=== PATIENT | female | born 1990 | race Caucasian/White ===

== ENCOUNTER 2018-01-15 11:07 | Emergency (ER) | payer BC ==
[2018-01-15 12:24] LABS: APPEARANCE, URINE TURBID (CLEAR); BACTERIA, URINE AUTO 1+ (NEGATIVE); BILIRUBIN, URINE AUTO NEGATIVE (NEGATIVE); BLOOD, URINE BLOOD 3+ (NEGATIVE); COLOR, URINE RED (YELLOW); GLUCOSE, URINE (UA) AUTO 1+ mg/dL (NEGATIVE); KETONE, URINE AUTO 1+ mg/dL (NEGATIVE); LEUKOCYTE ESTERASE, URINE AUTO 1+ (NEGATIVE); MUCUS, URINE LARGE (NEGATIVE); NITRITE, URINE AUTO NEGATIVE (NEGATIVE); PROTEIN, URINE AUTO 3+ mg/dL (NEGATIVE); RBC, URINE AUTO TNTC /HPF (0-3); SPECIFIC GRAVITY URINE AUTO 1.026 (1.002-1.035); SQUAMOUS EPITHELIAL CELL UR AU 0 /HPF (0-6); UROBILINOGEN, URINE AUTO 0.2 mg/dL (0.0-2.0); WBC, URINE AUTO 109 /HPF (0-3)
[2018-01-15 12:45] LABS: HCG, SERUM QUANTITATIVE 68 MIU/ML
[2018-01-15 13:11] LABS: ANION GAP 7 MEQ/L (8-16); BLOOD UREA NITROGEN 10 MG/DL (7-18); CALCIUM LEVEL 8.8 MG/DL (8.5-10.1); CARBON DIOXIDE LEVEL 25 MEQ/L (21-32); CHLORIDE LEVEL 109 MEQ/L (98-107); CREATININE FOR GFR 0.73 MG/DL (0.55-1.30); GLOMERULAR FILTRATION RATE > 60.0 (>60); GLUCOSE, FASTING 87 MG/DL (70-100); POTASSIUM SERUM 4.4 MEQ/L (3.5-5.1); SODIUM LEVEL 141 MEQ/L (136-145)
== END 2018-01-15 13:25 | disposition home or self-care (01) ==
LOC: M ED 11:07
DX: O20.0 Threatened abortion (principal); O23.10 Infections of bladder in pregnancy, unspecified trimester; Z79.899 Other long term (current) drug therapy; Z88.0 Allergy status to penicillin
CPT/HCPCS: 76801

== ENCOUNTER 2020-08-09 16:31 | Emergency (ER) | payer BC ==
[~2020-08-09] VITALS: Ht 167.6 cm; Wt 96.0 kg
[~2020-08-09 16:31] MED LIST: MACR100C43 PO; PREN1TAB11 PO
[2020-08-09 18:18] LABS: BASO % 0.3 % (0.0-1.0); EOS # 0.1 10^3/uL (0.0-0.5); EOS % 0.6 % (0.0-3.0); HEMATOCRIT 43.4 % (36.0-47.0); HEMOGLOBIN 14.1 g/dl (12.0-15.5); LYMPH # 3.9 10^3/uL (1.5-5.0); LYMPH % 33.2 % (24.0-44.0); MEAN CORPUSCULAR HEMOGLOBIN 29.5 pg (27.0-33.0); MEAN CORPUSCULAR HGB CONC 32.5 g/dl (32.0-36.5); MEAN CORPUSCULAR VOLUME 90.8 fl (80.0-96.0); MONO # 0.7 10^3/uL (0.0-0.8); MONO % 5.7 % (2.0-8.0); NEUTROPHILS # 6.9 10^3/uL (1.5-8.5); NEUTROPHILS % 59.8 % (36.0-66.0); PLATELET COUNT, AUTOMATED 280 10^3/uL (150-450); RED BLOOD COUNT 4.78 10^6/uL (4.00-5.40); WHITE BLOOD COUNT 11.6 10^3/uL (4.0-10.0)
[2020-08-09 19:07] LABS: BLOOD UREA NITROGEN 12 MG/DL (7-18); CALCIUM LEVEL 9.3 MG/DL (8.5-10.1); CARBON DIOXIDE LEVEL 24 MEQ/L (21-32); CHLORIDE LEVEL 108 MEQ/L (98-107); CREATININE FOR GFR 0.61 MG/DL (0.55-1.30); GLOMERULAR FILTRATION RATE > 60.0 (>60); GLUCOSE, FASTING 90 MG/DL (70-100); HCG, SERUM QUANTITATIVE 75155 MIU/ML; POTASSIUM SERUM 4.2 MEQ/L (3.5-5.1); SODIUM LEVEL 139 MEQ/L (136-145)
--- NOTE | 2020-08-09 22:01 | REPVR ---
PROCEDURE INFORMATION: Exam: US First Trimester, Transabdominal Exam date and time: 08/09/20 (8:16pm) Age: 30 years old Clinical indication: female (at 9 weeks). LMP: 06/08/20. Vaginal bleeding. Right-sided pain. TECHNIQUE: Imaging protocol: Real-time transabdominal obstetrical ultrasound of the maternal pelvis and a first trimester , less than 14 weeks 0 days, with image documentation COMPARISON: No relevant prior studies available FINDINGS: The LMP is reported to be: 06/08/20 An early live intrauterine gestation is identified, approx. 7 weeks 4 days gestational age, based on the crown-rump length (CRL = 13.2 mm). Based on the CRL measurement, the JAKE = 03/24/21. heart rate is recorded at 156 bpm. A yolk sac is visualized. The uterus is anteverted, measuring 9.2 x 5.7 x 6.6 cm in dimensions. The maternal right ovary measures 4.0 x 4.6 x 3.6 cm in dimensions. Small right ovarian cyst (11 x 10 x 7 mm size) (9 mm avg. size). The left ovary measures 3.1 x 3.2 x 2.1 cm in dimensions. There is no evidence of torsion on Doppler evaluation. No free pelvic fluid is appreciated. No solid adnexal mass. IMPRESSION: A single live IUP is seen, at 7 weeks 4 days gestational age (based on the CRL). heartbeat is recorded. Small right ovarian cyst (9 mm avg. size). No evidence of ovarian torsion. No free pelvic fluid is noted. Electronically signed by: Monique Noel On 08/09/2020 22:01:23 PM
[2020-08-09 22:13] VITALS: BP 127/77
== END 2020-08-09 22:24 | disposition home or self-care (01) ==
LOC: M ED 16:31
DX: O46.91 Antepartum hemorrhage, unspecified, first trimester (principal); O34.81 Maternal care for other abnormalities of pelvic organs, first trimester; Z88.1 Allergy status to other antibiotic agents; Z3A.01 Less than 8 weeks gestation of pregnancy; Z79.899 Other long term (current) drug therapy

== ENCOUNTER → 2020-08-25 | Outpatient (REF) | payer BC | LOC: M PLALAB 16:06 | PROVIDERS: ATTEND Obstetrics & Gynecology | DX: Z53.9 Procedure and treatment not carried out, unspecified reason (principal); Z86.32 Personal history of gestational diabetes ==

== ENCOUNTER → 2020-12-16 | Outpatient (CLI) | payer BC ==
[2020-12-16 10:54] LABS: HEMATOCRIT 37.2 % (36.0-47.0); HEMOGLOBIN 12.5 g/dl (12.0-15.5); MEAN CORPUSCULAR HGB CONC 33.6 g/dl (32.0-36.5); MEAN CORPUSCULAR VOLUME 89.2 fl (80.0-96.0); PLATELET COUNT, AUTOMATED 296 10^3/uL (150-450); RED BLOOD COUNT 4.17 10^6/uL (4.00-5.40)
== END ==
LOC: M LAB 08:15
PROVIDERS: ATTEND Obstetrics & Gynecology
DX: O34.211 Maternal care for low transverse scar from previous cesarean delivery (principal); Z3A.00 Weeks of gestation of pregnancy not specified

== ENCOUNTER 2021-01-26 17:31 | Outpatient (CLI) | payer BC ==
[2021-01-26] VITALS (7 sets, daily range): BP systolic 126–151; BP diastolic 80–97
[~2021-01-26] VITALS: Ht 167.6 cm; Wt 111.0 kg
[2021-01-26] MEDS ORDERED: PRENTAB9 PO (17:56)
[2021-01-26] MEDS ORDERED: TUMS750C5 PO (17:56)
[2021-01-26] MEDS ORDERED: ACET325C5 PO (17:56)
[2021-01-26] MEDS ORDERED: HOME MED LIST COMPLETE! XX SCH (18:00)
[2021-01-26 19:21] LABS: HEMATOCRIT 34.5 % (36.0-47.0); HEMOGLOBIN 11.5 g/dl (12.0-15.5); MEAN CORPUSCULAR HEMOGLOBIN 29.8 pg (27.0-33.0); MEAN CORPUSCULAR HGB CONC 33.3 g/dl (32.0-36.5); MEAN CORPUSCULAR VOLUME 89.4 fl (80.0-96.0); PLATELET COUNT, AUTOMATED 276 10^3/uL (150-450); RED BLOOD COUNT 3.86 10^6/uL (4.00-5.40); WHITE BLOOD COUNT 11.3 10^3/uL (4.0-10.0)
[2021-01-26 19:39] LABS: CREATININE,RANDOM URINE 51.4 MG/DL
[2021-01-26 19:42] LABS: ALT/SGPT 15 U/L (12-78); BILIRUBIN,TOTAL 0.2 MG/DL (0.2-1.0); CREATININE FOR GFR 0.52 MG/DL (0.55-1.30); GLOMERULAR FILTRATION RATE > 60.0 (>60); LDH LACTATE DEHYDROGENASE 169 U/L (84-246); URIC ACID 5.2 MG/DL (2.6-6.0)
--- NOTE | 2021-01-26 21:26 | IPNPDOC ---
Text Note Date of Service The patient was seen on 01/26/21. NOTE Labor and Delivery Triage Note: S: 30-year-old G5, P1 at 32 weeks 1 day presents for evaluation for elevated blood pressure r/o preeclampsia. Reports some irregular contractions denies any vaginal bleeding, leakage of fluid, contractions, headache or visual changes. O: Mild range blood pressures Cat 1 tracing Gen: well appearing, NAD Abd: gravid, soft, nttp Preeclamptic profile: Within normal limits CBC: Within normal limits Protein creatinine ratio 0.2 A/P: 30-year-old G5, P1 at 32 weeks 1 day with gestational hypertension reassuring status -home with PTL and preeclamptic precautions and FKCs. -f/u weekly with NST. Induction of labor at 37 weeks -Diagnosis and plan of care discussed with patient. All questions answered Sakshi Escalona MD VS,Reggie, I+O VS, Reggie I+O Laboratory Tests 01/26/21 18:42 Vital Signs Date Time Temp Pulse Resp B/P (MAP) Pulse Ox O2 Delivery O2 Flow Rate FiO2 01/26/21 18:49 110 132/97 (109) 01/26/21 17:48 97.2 SAKSHI ESCALONA MD. Jan 26, 2021 21:26
== END 2021-01-26 21:05 | disposition home or self-care (01) ==
LOC: M LDO 17:31 → MERGE 17:31 → M LDO 21:05
PROVIDERS: ATTEND Obstetrics & Gynecology
DX: O16.3 Unspecified maternal hypertension, third trimester (principal); O60.03 Preterm labor without delivery, third trimester; Z3A.32 32 weeks gestation of pregnancy
CPT/HCPCS: 36415; 59025; 82247; 82565; 82570; 83615; 84156; 84450; 84460; 84550; 85027; G0378; G0463

== ENCOUNTER → 2021-02-02 | Outpatient (CLI) | payer BC ==
[~2021-02-02] MED LIST changes: +ACET325C5 PO; +PRENTAB9 PO; +TUMS750C5 PO
--- NOTE | 2021-02-03 05:41 | REP ---
INDICATION: INDUCED HYPERTENSION COMPARISON: 08/09/2020 TECHNIQUE: Transabdominal obstetrical ultrasound with color Doppler evaluation. FINDINGS: Examination demonstrates a single live intrauterine in breech presentation. motion is identified by technologist. Placenta is noted posterior and grade 2 without evidence for placenta previa or abruption. Amniotic fluid volume is greater than normal. Cervix measures 4.0 cm in length and appears closed. Selected gestational age: 33 weeks 1 day with JAKE 03/22/2021. Gestational age by current measurements 35 weeks 0 days with JAKE 03/09/2021. FHR equals 138 beats per minute. DAYANA: 27.4 cm (8.3-24.5) Umbilical artery SD ratio: 2.30 (1.78-3.76) Estimated weight 2479 grams (84thpercentile). IMPRESSION: Single live intrauterine in breech presentation demonstrating appropriate interval growth. Polyhydramnios is suggested with increased amniotic fluid index. <Electronically signed by Len Okeefe > 02/03/21 [id number]
== END ==
LOC: M WHC 13:12
PROVIDERS: ATTEND Advanced Practice Midwife
DX: O12.03 Gestational edema, third trimester (principal); Z3A.33 33 weeks gestation of pregnancy

== ENCOUNTER → 2021-02-08 | Outpatient (CLI) | payer BC ==
[~2021-02-08] MED LIST changes: +IBUP-1022 PO; +METF10004 PO; +METF500T13 PO; +NIFE1TAB52 PO; +OXYC-517 PO
== END ==
LOC: M WHC 12:46
PROVIDERS: ATTEND Obstetrics & Gynecology
DX: O24.419 Gestational diabetes mellitus in pregnancy, unspecified control (principal); Z3A.00 Weeks of gestation of pregnancy not specified

== ENCOUNTER → 2021-02-16 | Outpatient (CLI) | payer BC, OTHER | LOC: M WHC 08:23 | PROVIDERS: ATTEND Obstetrics & Gynecology | DX: Z34.83 Encounter for supervision of other normal pregnancy, third trimester (principal); Z3A.30 30 weeks gestation of pregnancy ==

== ENCOUNTER → 2021-02-23 | Outpatient (REF) | payer OTHER, BC ==
[~2021-02-23] MED LIST changes: -IBUP-1022 PO; -METF10004 PO; -METF500T13 PO; -NIFE1TAB52 PO; -OXYC-517 PO
== END ==
LOC: M PLALAB 10:40
PROVIDERS: ATTEND Specialist
DX: Z34.83 Encounter for supervision of other normal pregnancy, third trimester (principal)

== ENCOUNTER → 2021-02-23 | Outpatient (CLI) | payer BC ==
--- NOTE | 2021-02-23 09:13 | REP ---
INDICATION: F/U COMPARISON: 02/16/2021 TECHNIQUE: Transabdominal obstetrical ultrasound with color Doppler evaluation. FINDINGS: Examination demonstrates a single live intrauterine in cephalic presentation. motion is identified by technologist. Placenta is noted posterior/fundal and grade 2 without evidence for placenta previa or abruption. Amniotic fluid volume is elevated and suggest polyhydramnios. Cervix measures 3.7 cm in length and appears closed.. Selected gestational age: 36 weeks 1 day with JAKE 03/22/2021. FHR equals 144 beats per minute. DAYANA: 30.6 cm (7.7-24.8) Biophysical profile score: 8/8 Umbilical artery SD ratio: 2.00 (1.63-3.50) IMPRESSION: Single live intrauterine in cephalic presentation. Polyhydramnios is suggested (DAYANA: 30.6 cm) Biophysical profile score: 8/8 <Electronically signed by Len Okeefe > 02/23/21 0909
== END ==
LOC: M WHC 07:45
PROVIDERS: ATTEND Obstetrics & Gynecology
DX: Z34.82 Encounter for supervision of other normal pregnancy, second trimester (principal); Z3A.36 36 weeks gestation of pregnancy

== ENCOUNTER 2021-03-01 13:32 | Inpatient (IN) | payer BC, OTHER ==
[~2021-03-01] VITALS: Ht 167.6 cm; Wt 114.8 kg
[2021-03-01] VITALS (43 sets, daily range): BP systolic 115–193; BP diastolic 69–117
[2021-03-01] MEDS ORDERED: METF500T13 PO (14:07)
[2021-03-01] MEDS ORDERED: METF10004 PO (14:07)
[2021-03-01] MEDS ORDERED: HOME MED LIST COMPLETE! XX SCH (14:10)
[2021-03-01] MEDS ORDERED: NIFEdipine 10 MG CAP PO ONE (14:35)
[2021-03-01 15:11] LABS: HEMATOCRIT 35.5 % (36.0-47.0); HEMOGLOBIN 11.7 g/dl (12.0-15.5); MEAN CORPUSCULAR HEMOGLOBIN 29.1 pg (27.0-33.0); MEAN CORPUSCULAR VOLUME 88.3 fl (80.0-96.0); PLATELET COUNT, AUTOMATED 298 10^3/uL (150-450); RED BLOOD COUNT 4.02 10^6/uL (4.00-5.40); WHITE BLOOD COUNT 11.1 10^3/uL (4.0-10.0)
[2021-03-01 15:20] LABS: APPEARANCE, URINE HAZY (CLEAR); BACTERIA, URINE AUTO 1+ (NEGATIVE); BILIRUBIN, URINE AUTO NEGATIVE (NEGATIVE); BLOOD, URINE BLOOD NEGATIVE (NEGATIVE); COLOR, URINE YELLOW (YELLOW); GLUCOSE, URINE (UA) AUTO NEGATIVE (NEGATIVE); KETONE, URINE AUTO NEGATIVE (NEGATIVE); LEUKOCYTE ESTERASE, URINE AUTO TRACE (NEGATIVE); NITRITE, URINE AUTO NEGATIVE (NEGATIVE); PROTEIN, URINE AUTO NEGATIVE (NEGATIVE); RBC, URINE AUTO 1 /HPF (0-3); SPECIFIC GRAVITY URINE AUTO 1.004 (1.002-1.035); SQUAMOUS EPITHELIAL CELL UR AU 3 /HPF (0-6); UROBILINOGEN, URINE AUTO 0.2 mg/dL (0.0-2.0); WBC, URINE AUTO 2 /HPF (0-3)
[2021-03-01 15:35] LABS: ALT/SGPT 15 U/L (12-78); BILIRUBIN,TOTAL 0.1 MG/DL (0.2-1.0); CREATININE FOR GFR 0.57 MG/DL (0.55-1.30); GLOMERULAR FILTRATION RATE > 60.0 (>60); LDH LACTATE DEHYDROGENASE 209 U/L (84-246); URIC ACID 5.9 MG/DL (2.6-6.0)
[2021-03-01 15:36] LABS: CREATININE,RANDOM URINE 36.1 MG/DL; TOTAL PROTEIN,RANDOM URINE 17.2 MG/DL (0.0-12.0)
[2021-03-01] MEDS ORDERED: MORPHINE PRES-FREE INJ 10 MG/10 ML VIAL (J2274) As Ordered ONE (16:59)
[2021-03-01] MEDS ORDERED: ePHEDrine SULFATE 25 MG/5 ML(5MG/ML) SYRINGE As Ordered ONE (17:00)
[2021-03-01] MEDS ORDERED: OXYTOCIN 30 UNITS IN 0.9% NaCl 500ML IV BAG (J2590) As Ordered ONE ×2 (17:00→19:32)
[2021-03-01] MEDS ORDERED: PHENYLephrine 500MCG 5ML (100MCG/ML) SYRINGE As Ordered ONE ×2 (17:00→18:15)
[2021-03-01] MEDS ORDERED: MIDAZOLAM INJ 2MG/2ML VIAL (J2250 PER 1MG) As Ordered ONE (17:04)
[2021-03-01] MEDS ORDERED: NIFEdipine 30 MG XL TAB PO STA (17:08)
[2021-03-01] MEDS ORDERED: BICITRA 30ML SOLN UDC PO ONE (17:10)
[2021-03-01] MEDS ORDERED: OXYTOCIN DRIP 30 UNITS in IV 1 EA IV PRN ×4 (17:10)
[2021-03-01] MEDS ORDERED: TRANEXAMIC ACID INJection 1,000 MG in NS 100 ML IV PRN (17:10)
[2021-03-01] MEDS ORDERED: CARBOPROST TROMETHAMINE 250 MCG/ML AMP IM PRN (17:10)
[2021-03-01] MEDS ORDERED: CLINDAMYCIN 900 MG in IV 1 EA IV ONE (17:15)
[2021-03-01] MEDS ORDERED: METOCLOPRAMIDE INJ 10MG/2ML VIAL (J2765 PER 1) IV PRN (17:53)
[2021-03-01] MEDS ORDERED: NALBUPHINE HCL 10 MG/ML AMP (J2300) IV PRN (17:53)
[2021-03-01] MEDS ORDERED: ONDANSETRON 4MG/2ML VIAL IV PRN ×3 (17:53→21:15)
[2021-03-01] MEDS ORDERED: diphenhydrAMINE 50MG/ML VIAL (J1200) IV PRN (17:53)
[2021-03-01] MEDS ORDERED: NALOXONE INJ 0.4MG/1ML VIAL (J2310 PER 1MG) IV PRN ×2 (17:53)
[2021-03-01] MEDS ORDERED: ONDANSETRON 4MG/2ML VIAL As Ordered ONE (17:58)
[2021-03-01] MEDS ORDERED: GENTAMICIN 400 MG in D5W 100 ML IV ONE (18:00)
[2021-03-01] MEDS ORDERED: TRANEXAMIC ACID 100 MG/ML 10ML VIAL As Ordered ONE (18:05)
[2021-03-01] MEDS ORDERED: OXYTOCIN INJ 10 UNITS/ML VIAL (J2590) As Ordered ONE ×2 (18:28→18:29)
[2021-03-01] MEDS ORDERED: METOCLOPRAMIDE INJ 10MG/2ML VIAL (J2765 PER 1) As Ordered ONE (18:50)
[2021-03-01] MEDS ORDERED: MEASLES,MUMPS,RUBELLA VACCINE INJ (MMR-II) (90707) SC SCH (19:00)
[2021-03-01] MEDS ORDERED: oxyCODONE 5MG TAB PO PRN ×2 (19:00)
[2021-03-01] MEDS ORDERED: SIMETHICONE 80MG CHEW TAB PO PRN (19:00)
[2021-03-01] MEDS ORDERED: MOM 30ML SUSPENSION UDC PO PRN (19:00)
[2021-03-01] MEDS ORDERED: RHOGAM 300 MCG (1500 IU) INJ (J2790) IM SCH (19:00)
[2021-03-01] MEDS ORDERED: MAG Sulf (L&D) 4 GM/100 ML 4 GM in IV 1 EA IV ONE (19:20)
[2021-03-01] MEDS ORDERED: LABETALOL 100MG/20ML VIAL IV ONE (19:20)
[2021-03-01] MEDS ORDERED: LABETALOL 100MG/20ML VIAL As Ordered ONE (19:27)
[2021-03-01] MEDS ORDERED: MAGNESIUM *L&D* 4GM/100ML BAG (40MG/ML) As Ordered ONE (19:33)
[2021-03-01] MEDS: LOPERAMIDE 2 MG CAPLET PO PRN ×2 (19:36→20:18)
[2021-03-01] MEDS ORDERED: MAGNESIUM SULFATE 4% INJ 20GM/500ML (40MG/ML) As Ordered ONE (19:56)
[2021-03-01] MEDS: MAG Sulf (OBGYN) 20GM/500ML 20,000 MG in IV 1 EA IV SCH (20:07)
[2021-03-01] MEDS ORDERED: LABETALOL 100MG/20ML VIAL IV STA (20:08)
[2021-03-01] MEDS: ACETAMINOPHEN 500 MG TAB PO SCH (20:18)
[2021-03-01] MEDS: KETOROLAC 30 MG/ML 1ML VIAL IV SCH (20:19)
[2021-03-01] MEDS ORDERED: LR 500 ML IV SCH (20:40)
[2021-03-01] MEDS: DOCUSATE SODIUM 100MG CAPSULE PO SCH (21:00)
[2021-03-01] MEDS ORDERED: IBUPROFEN 800 MG TAB PO SCH (21:00)
[2021-03-01] MEDS ORDERED: PERCOCET 5MG/325MG TAB PO PRN (21:15)
[2021-03-01] MEDS ORDERED: LR 1,000 ML IV SCH (21:15)
[2021-03-01] MEDS ORDERED: fentaNYL 100 MCG/2 ML INJECTION (J3010) IV PRN (21:15)
[2021-03-01] MEDS: LR 1,000 ML IV SCH (21:39)
[2021-03-02] VITALS (25 sets, daily range): BP systolic 97–139; BP diastolic 55–84
[2021-03-02] MEDS: KETOROLAC 30 MG/ML 1ML VIAL IV SCH ×3 (01:10→12:55)
[2021-03-02] MEDS: ACETAMINOPHEN 500 MG TAB PO SCH ×4 (01:11→18:44)
[2021-03-02] MEDS: MAG Sulf (OBGYN) 20GM/500ML 20,000 MG in IV 1 EA IV SCH ×2 (06:13→15:33)
[2021-03-02 06:47] LABS: HEMATOCRIT 34.5 % (36.0-47.0); HEMOGLOBIN 11.4 g/dl (12.0-15.5); MEAN CORPUSCULAR HEMOGLOBIN 29.5 pg (27.0-33.0); MEAN CORPUSCULAR VOLUME 89.1 fl (80.0-96.0); PLATELET COUNT, AUTOMATED 255 10^3/uL (150-450); RED BLOOD COUNT 3.87 10^6/uL (4.00-5.40); WHITE BLOOD COUNT 14.1 10^3/uL (4.0-10.0)
[2021-03-02] MEDS: DOCUSATE SODIUM 100MG CAPSULE PO SCH ×2 (08:23→21:05)
[2021-03-02] MEDS: PRENATAL VITAMINS CHEWABLE TABLET PO SCH (08:23)
[2021-03-02] MEDS: NIFEdipine 30 MG XL TAB PO SCH (08:24)
[2021-03-02] MEDS: ENOXAPARIN 60MG/0.6ML SYRINGE (J1650 PER 10MG) SC SCH (10:14)
[2021-03-02] MEDS: LR 1,000 ML IV SCH (10:26)
[2021-03-02] MEDS ORDERED: SODIUM CHLORIDE NASAL 0.65% SPRAY BTL (OCEAN) PRN (15:55)
[2021-03-02] MEDS: IBUPROFEN 600MG TAB PO SCH (21:05)
[2021-03-03] VITALS (7 sets, daily range): BP systolic 114–142; BP diastolic 64–79
[2021-03-03] MEDS: ACETAMINOPHEN 500 MG TAB PO SCH ×4 (00:44→20:12)
[2021-03-03] MEDS: IBUPROFEN 600MG TAB PO SCH ×4 (03:00→21:35)
[2021-03-03] MEDS: NIFEdipine 30 MG XL TAB PO SCH (08:38)
[2021-03-03] MEDS: PRENATAL VITAMINS CHEWABLE TABLET PO SCH (08:38)
[2021-03-03] MEDS: DOCUSATE SODIUM 100MG CAPSULE PO SCH ×2 (08:38→21:35)
[2021-03-03] MEDS: ENOXAPARIN 60MG/0.6ML SYRINGE (J1650 PER 10MG) SC SCH (08:39)
[2021-03-04 02:00] VITALS: BP 134/74
[2021-03-04] MEDS: ACETAMINOPHEN 500 MG TAB PO SCH ×3 (02:07→12:24)
[2021-03-04] MEDS: IBUPROFEN 600MG TAB PO SCH ×2 (02:07→09:36)
[2021-03-04 06:15] VITALS: BP 126/72
[2021-03-04] MEDS: ENOXAPARIN 60MG/0.6ML SYRINGE (J1650 PER 10MG) SC SCH (09:36)
[2021-03-04] MEDS: DOCUSATE SODIUM 100MG CAPSULE PO SCH (09:36)
[2021-03-04] MEDS: PRENATAL VITAMINS CHEWABLE TABLET PO SCH (09:36)
[2021-03-04] MEDS: NIFEdipine 30 MG XL TAB PO SCH (09:37)
[2021-03-04 10:42] VITALS: BP 149/90
[2021-03-04] MEDS ORDERED: OXYC-517 PO (13:27)
[2021-03-04] MEDS ORDERED: IBUP-1022 PO (13:27)
[2021-03-04] MEDS ORDERED: NIFE1TAB52 PO (13:27)
== END 2021-03-04 13:53 | disposition home or self-care (01) | DRG 540 ==
LOC: M LDI 13:32 → M OBS 03-02 20:53
PROVIDERS: ADMIT Advanced Practice Midwife; ATTEND Advanced Practice Midwife
PROC: 0UB70ZZ Excision of Bilateral Fallopian Tubes, Open Approach (ICD-10-PCS; 2021-03-01)
PROC: 10D00Z1 Extraction of Products of Conception, Low, Open Approach (ICD-10-PCS; principal; 2021-03-01 19:01)
DX: O34.211 Maternal care for low transverse scar from previous cesarean delivery (principal); O40.3XX0 Polyhydramnios, third trimester, not applicable or unspecified; O24.429 Gestational diabetes mellitus in childbirth, unspecified control; Z37.0 Single live birth; Z3A.37 37 weeks gestation of pregnancy; Z88.0 Allergy status to penicillin; O14.24 HELLP syndrome, complicating childbirth

== ENCOUNTER 2023-02-14 10:00 | Emergency (ER) | payer BC, OTHER ==
[~2023-02-14] VITALS: Ht 167.6 cm; Wt 90.2 kg
[~2023-02-14 10:00] MED LIST changes: +IBUP-1022 PO; +METF10004 PO; +METF500T13 PO; +NIFE1TAB52 PO; +OXYC-517 PO
[2023-02-14] MEDS ORDERED: SAXE1INJ SC (10:11)
[2023-02-14] MEDS ORDERED: TOPA50TA8 PO (10:11)
[2023-02-14 11:11] LABS: BASO # 0.1 10^3/uL (0.0-0.2); BASO % 0.5 % (0.0-1.0); EOS # 0.1 10^3/uL (0.0-0.5); EOS % 0.7 % (0.0-3.0); HEMATOCRIT 45.2 % (36.0-47.0); HEMOGLOBIN 14.8 g/dl (12.0-15.5); MEAN CORPUSCULAR HGB CONC 32.7 g/dl (32.0-36.5); MEAN CORPUSCULAR VOLUME 91.5 fl (80.0-96.0); MONO # 0.5 10^3/uL (0.0-0.8); MONO % 3.7 % (2.0-8.0); NEUTROPHILS # 9.9 10^3/uL (1.5-8.5); NEUTROPHILS % 72.7 % (36.0-66.0); PLATELET COUNT, AUTOMATED 326 10^3/uL (150-450); RED BLOOD COUNT 4.94 10^6/uL (4.00-5.40); WHITE BLOOD COUNT 13.7 10^3/uL (4.0-10.0)
[2023-02-14] MEDS ORDERED: KETOROLAC 30 MG/ML 1ML VIAL IV ONE (11:25)
[2023-02-14] MEDS ORDERED: ONDANSETRON 4MG 2ML VIAL IV ONE (11:25)
[2023-02-14 11:29] LABS: ALBUMIN 4.5 G/DL (3.2-5.2); BILIRUBIN,DIRECT 0.1 MG/DL (<0.4); BILIRUBIN,TOTAL 0.4 MG/DL (0.3-1.2); TOTAL PROTEIN 7.8 G/DL (5.7-8.2)
[2023-02-14 13:57] LABS: APPEARANCE, URINE HAZY (CLEAR); BACTERIA, URINE AUTO 1+ (NEGATIVE); BILIRUBIN, URINE AUTO NEGATIVE (NEGATIVE); BLOOD, URINE BLOOD 2+ (NEGATIVE); COLOR, URINE YELLOW (YELLOW); GLUCOSE, URINE (UA) AUTO NEGATIVE (NEGATIVE); KETONE, URINE AUTO NEGATIVE (NEGATIVE); LEUKOCYTE ESTERASE, URINE AUTO NEGATIVE (NEGATIVE); MUCUS, URINE SMALL (NEGATIVE); NITRITE, URINE AUTO NEGATIVE (NEGATIVE); PROTEIN, URINE AUTO NEGATIVE (NEGATIVE); RBC, URINE AUTO 20 /HPF (0-3); SPECIFIC GRAVITY URINE AUTO 1.008 (1.002-1.035); SQUAMOUS EPITHELIAL CELL UR AU 3 /HPF (0-6); UROBILINOGEN, URINE AUTO 0.2 mg/dL (0.0-2.0); WBC, URINE AUTO 1 /HPF (0-3)
[2023-02-14] MEDS ORDERED: POTA10808 PO (13:57)
[2023-02-14] MEDS ORDERED: ONDA4TAB6 PO (14:00)
[2023-02-14] MEDS ORDERED: HYDR-3713 PO (14:00)
[2023-02-14 14:18] VITALS: BP 136/84; TEMP 98.1; O2SAT 99
== END 2023-02-14 14:18 | disposition home or self-care (01) ==
LOC: M ED 10:00
DX: N20.1 Calculus of ureter (principal); Q61.5 Medullary cystic kidney
CPT/HCPCS: 74176; 80047; 80076; 81001; 83690; 84702; 85025; 96374; 96375; 99284; J1885; J2405

== ENCOUNTER → 2023-03-19 | Outpatient (REF) | payer OTHER ==
[~2023-03-19] MED LIST changes: +HYDR-3713 PO; +ONDA4TAB6 PO; +POTA10808 PO; +SAXE1INJ SC; +TOPA50TA8 PO
[2023-03-19 21:01] LABS: BLOOD UREA NITROGEN 14 MG/DL (9-23); CALCIUM LEVEL 9.1 MG/DL (8.5-10.1); CARBON DIOXIDE LEVEL 30 MMOL/L (20-31); CHLORIDE LEVEL 107 MMOL/L (98-107); CREATININE FOR GFR 0.66 MG/DL (0.55-1.30); GLOMERULAR FILTRATION RATE > 60.0 (>60); GLUCOSE, FASTING 89 MG/DL (60-100); POTASSIUM SERUM 4.2 MMOL/L (3.5-5.1); SODIUM LEVEL 142 MMOL/L (136-145)
== END ==
LOC: M LAB REF 20:43
PROVIDERS: ATTEND Physician Assistant
DX: N20.0 Calculus of kidney (principal)

== ENCOUNTER → 2023-06-05 | Outpatient (REF) | payer OTHER | LOC: M SFHCWAGY 17:51 | PROVIDERS: ATTEND Nurse Practitioner Family | DX: Z12.4 Encounter for screening for malignant neoplasm of cervix (principal) | CPT/HCPCS: 87624; G0123 ==

== ENCOUNTER → 2023-06-20 | Outpatient (CLI) | payer OTHER | LOC: M WHC 07:01 | PROVIDERS: ATTEND Nurse Practitioner Family | DX: N92.1 Excessive and frequent menstruation with irregular cycle (principal); R10.2 Pelvic and perineal pain ==

== ENCOUNTER → 2023-06-28 | Outpatient (CLI) | payer OTHER | LOC: M WUC 11:00 | PROVIDERS: ATTEND Physician Assistant | DX: N20.0 Calculus of kidney (principal) ==

== ENCOUNTER → 2024-06-30 | Outpatient (CLI) | payer OTHER ==
[~2024-06-30] MED LIST changes: +ONDA-282 PO; -ONDA4TAB6 PO; -POTA10808 PO; +POTA10809 PO
== END ==
LOC: M WUC 10:06
PROVIDERS: ATTEND Physician Assistant
DX: N20.0 Calculus of kidney (principal)